=== PATIENT | female | born 1990 ===

== ENCOUNTER 2016-07-26 14:54 | Emergency (ER) | payer OTHER ==
[2016-07-26 14:59] VITALS: BP 136/82; PULSE 71; RESP 16; TEMP 98; O2SAT 100
--- NOTE | 2016-07-26 17:03 | ED PDOC ---
HPI: Back Time Seen by Provider: 07/26/16 15:13 Chief Complaint (Nursing): Back Pain Chief Complaint (Provider): "I threw my back out" History Per: Patient History/Exam Limitations: no limitations Onset/Duration Of Symptoms: Mins Current Symptoms Are (Timing): Still Present Additional Complaint(s): Pt states that she was leaned over coughing and she stood up fast. Pt reports acute onset of right sided low back pain and tightness. No N/V/D. No medications SIZE CHANGER. Past Medical History Reviewed: Historical Data, Nursing Documentation, Vital Signs Vital Signs: Last Vital Signs Temp 98.0 F 07/26/16 14:57 Pulse 71 07/26/16 14:57 Resp 16 07/26/16 14:57 BP 136/82 07/26/16 14:57 Pulse Ox 100 07/26/16 14:57 - Medical History PMH: Anxiety - Surgical History Surgical History: No Surg Hx - Family History Family History: States: Unknown Family Hx - Living Arrangements Living Arrangements: With Family - Social History Current smoker - smoking cessation education provided: No Alcohol: None Drugs: Denies - Home Medications Home Medications: Ambulatory Orders Medication Instructions Recorded Cephalexin [Keflex] 500 mg PO TID #15 cap 06/10/14 Miconazole [Monistat 3] 200 mg VG DAILY #3 sup 06/10/14 Naproxen [Naprosyn Tab] 500 mg PO BID PRN #20 tab 06/26/14 Ibuprofen [Motrin Tab] 800 mg PO Q6H PRN #20 tab 07/26/16 diaZEpam [Valium] 5 mg PO Q6H PRN #15 tab 07/26/16 - Allergies Allergies/Adverse Reactions: Allergies Allergy/AdvReac Type Severity Reaction Status Date / Time avocado Allergy SWELLING Verified 07/26/16 15:01 ceballos Allergy SWELLING Verified 07/26/16 15:01 plum Allergy SWELLING Verified 07/26/16 15:01 Review of Systems ROS Statement: Except As Marked, All Systems Reviewed And Found Negative Musculoskeletal: Positive for: Back Pain Physical Exam - Reviewed Nursing Documentation Reviewed: Yes Vital Signs Reviewed: Yes - Physical Exam Appears: Positive for: Well, Non-toxic, No Acute Distress Head Exam: Positive for: ATRAUMATIC, NORMAL INSPECTION, NORMOCEPHALIC Skin: Positive for: Normal Color, Warm, DRY Eye Exam: Positive for: Normal appearance ENT: Positive for: Normal ENT Inspection Neck: Positive for: Normal, Painless ROM Cardiovascular/Chest: Positive for: Regular Rate, Rhythm Respiratory: Positive for: Normal Breath Sounds. Negative for: Accessory Muscle Use, Respiratory Distress Back: Positive for: Normal Inspection, Decreased ROM, Muscle Spasm. Negative for: Vertebral Tenderness Extremity: Positive for: Normal ROM Neurologic/Psych: Positive for: Alert, Oriented - ECG O2 Sat by Pulse Oximetry: 100 Medical Decision Making Medical Decision Making: XR normal. Disposition - Clinical Impression Clinical Impression: Back strain - Patient ED Disposition Is Patient to be Admitted: No Counseled Patient/Family Regarding: Diagnosis, Need For Followup, Rx Given - Disposition Referrals: [facility] [Outside] Disposition: Routine/Home Disposition Time: 20:14 Condition: GOOD Prescriptions: Ibuprofen [Motrin Tab] 800 mg PO Q6H PRN #20 tab PRN Reason: Pain diaZEpam [Valium] 5 mg PO Q6H PRN #15 tab PRN Reason: Pain Instructions: Back Pain (ED) Forms: [facility] ED School/Work Excuse
--- NOTE | 2016-07-27 10:47 | RAD ---
PROCEDURE: Radiographs of the Lumbar Spine. HISTORY: Low back pain COMPARISON: No prior. FINDINGS: BONES: Normal alignment. No listhesis. No fracture. DISC SPACES: Unremarkable. OTHER FINDINGS: None. IMPRESSION: Unremarkable radiographs of the lumbar spine.
== END 2016-07-26 20:27 | disposition home or self-care (01) ==
LOC: H.ER 14:54
DX: S39.012A Strain of muscle, fascia and tendon of lower back, initial encounter (principal); X58.XXXA Exposure to other specified factors, initial encounter

== ENCOUNTER 2016-10-28 02:22 | Emergency (ER) | payer OTHER ==
[2016-10-28 02:35] VITALS: BP 117/74; PULSE 89; RESP 20; TEMP 98; O2SAT 100
[2016-10-28] MEDS ORDERED: Albuterol-Ipratrop 3 mg / 0.5 (3 ml) UD IH STA (03:23)
--- NOTE | 2016-10-28 03:27 | ED PDOC ---
HPI: CCC, URI, Sore Throat Time Seen by Provider: 10/28/16 02:32 Chief Complaint (Nursing): Respiratory Distress Chief Complaint (Provider): cough History Per: Patient History/Exam Limitations: no limitations Onset/Duration Of Symptoms: Days (2 weeks) Additional History Per: Patient Additional Complaint(s): 25 y/o female presents with persistent nonproductive cough x 2 weeks. Associated chest pain with cough x 1 week, and episodes of post-tussive vomiting. Denies fever, ear pain, nasal congestion/discharge, shortness of breath, palpitations, abdominal pain, recent travel, leg pain/swelling. No relief with Mucinex. Past Medical History Reviewed: Historical Data, Nursing Documentation, Vital Signs Vital Signs: Last Vital Signs Temp 98 F 10/28/16 02:32 Pulse 89 10/28/16 02:32 Resp 20 10/28/16 02:32 BP 117/74 10/28/16 02:32 Pulse Ox 100 10/28/16 03:27 - Medical History PMH: Anxiety - Surgical History Surgical History: No Surg Hx - Family History Family History: States: Unknown Family Hx - Home Medications Home Medications: Ambulatory Orders Medication Instructions Recorded Cephalexin [Keflex] 500 mg PO TID #15 cap 06/10/14 Miconazole [Monistat 3] 200 mg VG DAILY #3 sup 06/10/14 Naproxen [Naprosyn Tab] 500 mg PO BID PRN #20 tab 06/26/14 Ibuprofen [Motrin Tab] 800 mg PO Q6H PRN #20 tab 07/26/16 diaZEpam [Valium] 5 mg PO Q6H PRN #15 tab 07/26/16 Albuterol HFA [Ventolin HFA 90 1 puff IH Q4 PRN #1 inh 10/28/16 mcg/actuation (8 g)] Azithromycin [Zithromax] 250 mg PO DAILY #1 packet 10/28/16 Naproxen [Naprosyn] 500 mg PO Q12 PRN #20 tablet 10/28/16 Promethazine/Codeine 5 ml PO HS PRN #20 udc 10/28/16 [Phenergan/Codeine Oral Syrup] - Allergies Allergies/Adverse Reactions: Allergies Allergy/AdvReac Type Severity Reaction Status Date / Time avocado Allergy SWELLING Verified 04/10/17 15:01 ceballos Allergy SWELLING Verified 07/26/16 15:01 plum Allergy SWELLING Verified 07/26/16 15:01 Review of Systems ROS Statement: Except As Marked, All Systems Reviewed And Found Negative Cardiovascular: Positive for: Chest Pain Respiratory: Positive for: Cough Physical Exam - Reviewed Nursing Documentation Reviewed: Yes Vital Signs Reviewed: Yes - Physical Exam Appears: Positive for: Well, Non-toxic, No Acute Distress Head Exam: Positive for: ATRAUMATIC, NORMAL INSPECTION, NORMOCEPHALIC Skin: Positive for: Normal Color Eye Exam: Positive for: Normal appearance ENT: Positive for: Normal ENT Inspection Cardiovascular/Chest: Positive for: Regular Rate, Rhythm. Negative for: Chest Non Tender (tender to palpate across upper chest wall; no swelling, ecchymosis, crepitus noted) Respiratory: Positive for: Normal Breath Sounds Gastrointestinal/Abdominal: Positive for: Normal Exam Back: Positive for: Normal Inspection Extremity: Positive for: Normal ROM Neurologic/Psych: Positive for: Alert, Oriented - ECG ECG: Positive for: Viewed By Me (reviewed by ED attending) ECG Rhythm: Positive for: Sinus Rhythm O2 Sat by Pulse Oximetry: 100 Pulse Ox Interpretation: Normal - Radiology X-Ray: Viewed By Me X-Ray Interpretation: No Acute Disease - Progress ED Course And Treament: chest xray, ekg, Toradol IM, duoneb Patient educated on findings, discharged with rx Zpak, Albuterol, Naproxen, Promethazine with codeine. Patient educated on risk of narcotic abuse/dependence/overdose; advised to take as needed for severe cough only; patient demonstrates full understanding. Follow up PMD 2-3 days. Return to ED for worsening/concerning symptoms. Disposition - Clinical Impression Clinical Impression: Bronchitis, Chest wall pain - Patient ED Disposition Is Patient to be Admitted: No Counseled Patient/Family Regarding: Studies Performed, Diagnosis, Need For Followup, Rx Given - Disposition Disposition: Routine/Home Disposition Time: 04:23 Condition: IMPROVED Prescriptions: Albuterol HFA [Ventolin HFA 90 mcg/actuation (8 g)] 1 puff IH Q4 PRN #1 inh PRN Reason: Cough Azithromycin [Zithromax] 250 mg PO DAILY #1 packet Naproxen [Naprosyn] 500 mg PO Q12 PRN #20 tablet PRN Reason: Pain, Moderate (4-7) Promethazine/Codeine [Phenergan/Codeine Oral Syrup] 5 ml PO HS PRN #20 udc PRN Reason: Cough Instructions: Chest Wall Pain (ED), Acute Bronchitis (ED)
[2016-10-28] MEDS ORDERED: Albuterol-Ipratrop 3 mg / 0.5 (3 ml) UD ONE (03:43)
--- NOTE | 2016-10-28 08:05 | CARD ---
APPROVED REPORT EKG Measurement Heart [id number] <Conclusion> Normal sinus rhythm Normal ECG
--- NOTE | 2016-10-28 10:10 | RAD ---
HISTORY: Cough COMPARISON: 04/29/2013. TECHNIQUE: Chest PA and lateral FINDINGS: LUNGS: The lungs are well inflated and clear. PLEURA: No significant pleural effusion identified. No pneumothorax apparent. CARDIOVASCULAR: Normal. OSSEOUS STRUCTURES: No significant abnormalities. VISUALIZED UPPER ABDOMEN: Normal. OTHER FINDINGS: None. IMPRESSION: No active pulmonary disease.
== END 2016-10-28 04:39 | disposition home or self-care (01) ==
LOC: H.ER 02:22
DX: J40 Bronchitis, not specified as acute or chronic (principal); F41.9 Anxiety disorder, unspecified